=== PATIENT | male | born 1980 | race Caucasian/White ===

== ENCOUNTER 2020-08-21 18:35 | Emergency (ER) | payer OTHER ==
[~2020-08-21] VITALS: Ht 180.3 cm; Wt 100.0 kg
[~2020-08-21 18:35] MED LIST: AMOXICILLIN 50500 MG PO; CEPHALEXIN500 M1 PO; DEPAKOTE DR500 MG PO; LORTAB 5/500 501 TAB PO; LORTAB 7.5/5001 TAB PO; NAPROSYN PO; NO HOME MEDICATIONS; NORCO 325 MG-7.1 TAB PO; PENICILLIN V500 MG PO; PRINIVIL20 MG PO; ULTRAM 50MG TAB50 MG PO; VIVLODEX5 MG; ZITHROMAX Z PA250 MG PO; ZOLOFT100 MG PO
[2020-08-21 19:02] LABS: BASO % 0.1 % (0.0-2.0); EOS % 0.4 % (0-4.0); GRAN % 82.3 % (42.2-75.2); HEMATOCRIT 46.8 % (42.0-52.0); HEMOGLOBIN 16.3 g/dl (13.5-18.0); LYMPH # 0.9 (1.2-3.4); MEAN CELL VOLUME 89 fl (80.0-100.0); MEAN CORPUSCULAR HEMOGLOBIN 31 pg (27.0-31.0); MEAN CORPUSCULAR HGB CONC 35 g/dl (33.0-37.0); MEAN PLATELET VOLUME 8.8 fl (7.4-10.4); MONO # 0.8 (0.1-0.6); MONO % 7.8 % (1.7-9.3); PLATELET COUNT 280 K/mm3 (130-400); RED BLOOD COUNT 5.27 M/mm3 (4.20-5.60); REDCELL DISTRIBUTION WIDTH-CV 11.6 % (11.5-14.5)
[2020-08-21 19:32] LABS: INR 1.1 (0.8-3.0); PROTHROMBIN TIME 12.5 SECONDS (9.7-12.8)
[2020-08-21 19:33] LABS: ALANINE AMINOTRANSFERASE 26 U/L (4-49); ALBUMIN 4.2 gm/dL (3.5-5.0); ALKALINE PHOSPHATASE 80 U/L (50-136); ANION GAP 11 mmol/L (7-16); AST,SGOT 31 U/L (15-37); BILIRUBIN,TOTAL 1.5 mg/dL (0.0-1.0); BLOOD UREA NITROGEN 18 mg/dL (9-20); C-REACTIVE PROTEIN 2.9 mg/dL (0.0-0.9); CARBON DIOXIDE 27 mmol/L (22-30); CHLORIDE 98 mmol/L (98-107); CREATINE KINASE 144 U/L (55-170); CREATININE, serum 1.14 (0.66-1.25); GLUCOSE 85 mg/dL (74-106); LIPASE 323 U/L (23-300); POTASSIUM 3.5 mmol/L (3.4-5.0); SODIUM 135 mmol/L (137-145); TOTAL PROTEIN 7.7 gm/dL (6.4-8.2)
[2020-08-21 19:35] LABS: ALCOHOL(ethanol),MEDICAL < 10 mg/dL
[2020-08-21 19:47] LABS: TROPONIN-I < 0.012 ng/mL (0.000-0.035)
[2020-08-21 23:53] VITALS: BP 109/59; PULSE 67; TEMP 98.4
== END 2020-08-21 23:56 | disposition home or self-care (01) ==
LOC: COL.ER 18:35
PROVIDERS: Emergency Medicine
DX: K52.9 Noninfective gastroenteritis and colitis, unspecified (principal); R74.02 Elevation of levels of lactic acid dehydrogenase [LDH]; R79.82 Elevated C-reactive protein (CRP); I10 Essential (primary) hypertension; F17.210 Nicotine dependence, cigarettes, uncomplicated; Z79.899 Other long term (current) drug therapy
CPT/HCPCS: C9113; J2060; J2550; J7030; Q9967

== ENCOUNTER 2020-10-20 17:19 | Emergency (ER) | payer SELFPAY ==
[~2020-10-20] VITALS: Ht 180.3 cm; Wt 109.1 kg
[2020-10-20 18:30] VITALS: BP 154/65; PULSE 80; TEMP 97.8
== END 2020-10-20 18:55 | disposition home or self-care (01) ==
LOC: COL.ER 17:19
DX: F15.90 Other stimulant use, unspecified, uncomplicated (principal); M79.604 Pain in right leg; F17.210 Nicotine dependence, cigarettes, uncomplicated

== ENCOUNTER 2020-12-14 09:05 | Emergency (ER) | payer SELFPAY ==
[~2020-12-14] VITALS: Ht 177.8 cm; Wt 100.0 kg
[2020-12-14 09:07] VITALS: BP 153/99; PULSE 91; TEMP 96.8
== END 2020-12-14 09:10 | disposition left against medical advice (07) ==
LOC: COL.ER 09:05
DX: R53.81 Other malaise (principal)

== ENCOUNTER 2021-10-20 16:29 | Emergency (ER) | payer SELFPAY ==
[~2021-10-20] VITALS: Ht 180.3 cm; Wt 100.0 kg
[2021-10-20 16:36] VITALS: BP 144/84; PULSE 99; TEMP 99.5
== END 2021-10-20 18:08 | disposition left against medical advice (07) ==
LOC: COL.ER 16:29
DX: U07.1 COVID-19 (principal); F17.210 Nicotine dependence, cigarettes, uncomplicated
CPT/HCPCS: J1885; J7030

== ENCOUNTER 2021-12-06 21:58 | Emergency (ER) | payer SELFPAY ==
[~2021-12-06] VITALS: Ht 180.3 cm; Wt 95.5 kg
[2021-12-06 22:06] VITALS: BP 157/93; TEMP 98.1
[2021-12-06 22:23] LABS: STREP SCREEN NEGATIVE
[2021-12-06] MEDS ORDERED: MAGIC MOUTH PO (23:02)
[2021-12-06 23:24] VITALS: PULSE 98
== END 2021-12-06 23:23 | disposition home or self-care (01) ==
LOC: COL.ER 21:58
PROVIDERS: Nurse Practitioner Primary Care
DX: J03.90 Acute tonsillitis, unspecified (principal); F17.210 Nicotine dependence, cigarettes, uncomplicated; Z20.822 Contact with and (suspected) exposure to COVID-19

== ENCOUNTER 2021-12-17 17:59 | Emergency (ER) | payer SELFPAY ==
[~2021-12-17] VITALS: Ht 180.3 cm; Wt 97.7 kg
[~2021-12-17 17:59] MED LIST changes: +MAGIC MOUTH PO
[2021-12-17 18:16] VITALS: TEMP 99.2
[2021-12-17 19:07] LABS: COLLECTION METHOD CLEAN CATCH
[2021-12-17 19:15] LABS: URINE APPEARANCE Clear (CLEAR/HAZY); URINE BLOOD Negative (NEGATIVE); URINE COLOR Yellow (YELLOW); URINE GLUCOSE Negative (NEGATIVE); URINE KETONE TRACE (NEGATIVE); URINE NITRATE Negative (NEGATIVE); URINE PROTEIN(semi-quant) TRACE (NEGATIVE); URINE UROBILINOGEN 0.2 E.U/dL (0.2-1.0)
[2021-12-17 19:19] LABS: MUCOUS Present (NOT PRESENT); SQUAMOUS EPITHELIAL None Seen /hpf (0-10); URINE BACTERIA None Seen /hpf (NONE SEEN); URINE RBC 0-2 /hpf (0-2)
[2021-12-17 22:27] LABS: MONOSCREEN NEGATIVE
[2021-12-17] MEDS ORDERED: CEPHALEXIN500 M1 PO (22:29)
[2021-12-17 22:36] VITALS: BP 148/78; PULSE 80
== END 2021-12-17 22:36 | disposition home or self-care (01) ==
LOC: COL.ER 17:59
PROVIDERS: Nurse Practitioner Primary Care
DX: J03.90 Acute tonsillitis, unspecified (principal); F17.200 Nicotine dependence, unspecified, uncomplicated; Z28.310 Unvaccinated for COVID-19

== ENCOUNTER 2022-07-28 15:57 | Emergency (ER) | payer SELFPAY ==
[~2022-07-28] VITALS: Ht 180.3 cm; Wt 100.0 kg
[~2022-07-28 15:57] MED LIST changes: +BACTRIM DS 8001 TAB PO; +PROBIOTIC ACID1 EAC3 PO; +VANCOCIN H125 MG/CAP PO
[2022-07-28 17:18] LABS: STREP SCREEN NEGATIVE
[2022-07-28 17:40] VITALS: BP 130/73; PULSE 113; TEMP 101.9
== END 2022-07-28 17:40 | disposition home or self-care (01) ==
LOC: COL.ER 15:57
PROVIDERS: Physician Assistant
DX: B34.9 Viral infection, unspecified (principal); R51.9 Headache, unspecified; M79.10 Myalgia, unspecified site; R68.83 Chills (without fever); Z20.822 Contact with and (suspected) exposure to COVID-19
CPT/HCPCS: J1885